=== PATIENT | male | born 1945 | race African-American/Black ===

== ENCOUNTER → 2016-09-21 | Outpatient (CLI) | payer OTHER ==
[~2016-09-21] MED LIST: AMLODIPINE BESY10 MG PO; ASPIRIN325 PO; BENICAR20 MG PO; FENOFIBRATE160 MG PO; FLEXERIL PO; HYDROCODON-ACE1 EAC7 PO; LIPITOR40 MG PO; LOPRESSOR 50 MG50 M1 PO; MULTI VITAMIN1 EACH PO; NICOTINE TRANSD21 M1 TD; NORCO 5-325 TA1 EACH PO
== END ==
LOC: GI 05:22 → EDSTATUS 11:16 → GI 11:18
DX: D64.89 Other specified anemias (principal); K55.20 Angiodysplasia of colon without hemorrhage; K92.1 Melena; Z79.82 Long term (current) use of aspirin; Z79.899 Other long term (current) drug therapy; Z88.8 Allergy status to other drugs, medicaments and biological substances; I10 Essential (primary) hypertension; E78.00 Pure hypercholesterolemia, unspecified

== ENCOUNTER → 2016-10-21 | Outpatient (CLI) | payer OTHER ==
[~2016-10-21] VITALS: Ht 167.6 cm; Wt 83.5 kg
[~2016-10-21] MED LIST changes: +COZAAR 50 MG TA50 M2 PO; +IRON325 PO; +PANTOPRAZOLE SO40 M1 PO
== END | disposition home or self-care (01) ==
LOC: GI 08:20
DX: Q27.33 Arteriovenous malformation of digestive system vessel (principal); D64.9 Anemia, unspecified
CPT/HCPCS: 62110; 62900

== ENCOUNTER → 2018-08-17 | Outpatient (CLI) | payer OTHER ==
[~2018-08-17] VITALS: Ht 167.6 cm; Wt 88.0 kg
[~2018-08-17] MED LIST changes: +LIPITOR10 MG PO; +LOPRESSOR50 PO
--- NOTE | ~2018-08-17 | P ---
[facility] [place] [address] PROCEDURE REPORT Name: BONITA LEON JR Room #: REG JUNIOR Gutiérrez.#: [id number] Admission: 08/17/18 ������������������ Attend Phys: Anish Green Discharge: ������������������ Date of : 45 Report #: [id number] THIS REPORT FOR: //name// CC: Anish Oakley MD DATE OF SERVICE: 08/17/2018 PROCEDURE PERFORMED: Colonoscopy with biopsies and cautery. HISTORY OF PRESENT ILLNESS: The patient is a 73-year-old male with a history of colon polyps, here for a 5-year routine followup, possible family history of colon cancer in his father. 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 He denies any signs of bleeding at this time. He has also had a previous tight stricture of the sigmoid colon that was surgically removed several years ago due to recurrent diverticulitis. DESCRIPTION OF PROCEDURE: The risks and benefits of the procedure were explained to the patient, those risks including, but not limited to, bleeding, perforation, the risk of sedation. He understood these risks and gave informed consent. Sedation was given using propofol per anesthesia. Next, a digital rectal exam was initially performed, which was normal. Next, using a standard Olympus colonoscope, the scope was placed in the patient's anus and advanced under direct vision to the cecum. The overall prep was excellent. In the cecum, there were 2 small nonbleeding AVMs. Because of his previous history of AVMs and anemia, however, I did proceed with cautery. Using a 7-Finnish bipolar cautery, these were cauterized without any difficulty. No evidence of bleeding after cauterization. The ileocecal valve was normal. The ascending, transverse and descending colon were normal. In the remaining sigmoid colon, a single 4 mm sessile polyp was noted. This was removed with cold forceps. The surgical anastomosis was noted. This was well healed and widely patent. The rectal mucosa was normal. On retroflexion, no abnormalities were noted. The scope was then withdrawn and the procedure terminated. The patient tolerated the procedure well. IMPRESSION: 1. Small colonic polyp. 2. 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 3. Surgical anastomosis noted in the sigmoid colon. RECOMMENDATIONS: 1. Await biopsy results. 2. Repeat colonoscopy in [address] [address] PROCEDURE REPORT Name: BONITA LEON Room #: REG JUNIOR Dc#: [id number] Admission: 08/17/18 ������������������ Attend Phys: Anish Green Discharge: ������������������ Date of : 45 Report #: [id number] Thank you for allowing me to participate in his care. ��������������������������������������������� ���������������������������������������� By: ��������������������������������������������� [id number] [id number] Anish Gutierrez MD /swapna
--- NOTE | 2018-08-20 17:06 | PATH ---
[facility] [address] [place] [address] PATHOLOGY RPT PROCEDURE Name: DMITRI LEON JR Room #: REG [facility] M.R.#: [id number] ������������������ Admission: 08/17/18 ������������������ Date of : 45 Discharge: Report #: [id number] Path Case #: [id number] [facility] Accession Number: [id number] . 01 Material submitted: . colon - POLYP AT SIGMOID. Modifiers: sigmoid . 01 Clinical history: . Hx of polyps . 02 Diagnosis: Polyp, at sigmoid, endoscopic biopsy: - Tubular adenoma. - Negative for high-grade dysplasia. (IUV:director of public health; 08/20/2018) MBR/08/20/2018 . 02 Electronically signed: . Gladys Stone MD, Pathologist NPI- [id number] . 01 Gross description: . Received in formalin labeled "Dmitri Leon Jr, polyp at sigmoid," are 2 segments of eason soft tissue measuring 1.0 x 0.2 x 0.2 cm in aggregate dimensions and ranging from 0.3 to 0.8 cm in maximum dimension. The specimen is submitted entirely in cassette A1. (TSD; 08/17/2018) TOB/TOB . 02 Pathologist provided ICD-10: D12.5 . 02 CPT . 763547 Specimen Comment: A courtesy copy of this report has been sent to Specimen Comment: [phone], . Specimen Comment: Report sent to / DR LAW Performed at: [address], [place], [place] [id number] MD Eduardo Chaney MD Phone: [phone] Performed at: [address] [id number] MD Gladys Stone MD Phone: [phone]
== END | disposition home or self-care (01) ==
LOC: GI 07:46
DX: Z12.11 Encounter for screening for malignant neoplasm of colon (principal); Z86.010 Personal history of colon polyps; D12.5 Benign neoplasm of sigmoid colon; K55.20 Angiodysplasia of colon without hemorrhage; Z98.0 Intestinal bypass and anastomosis status; I10 Essential (primary) hypertension; E78.5 Hyperlipidemia, unspecified; D64.9 Anemia, unspecified; K21.9 Gastro-esophageal reflux disease without esophagitis; Z87.442 Personal history of urinary calculi; Z98.890 Other specified postprocedural states; Z87.891 Personal history of nicotine dependence; Z79.899 Other long term (current) drug therapy; Z88.8 Allergy status to other drugs, medicaments and biological substances; Z79.82 Long term (current) use of aspirin; Z87.19 Personal history of other diseases of the digestive system; Z86.2 Personal history of diseases of the blood and blood-forming organs and certain disorders involving the immune mechanism
CPT/HCPCS: 62110; 62900

== ENCOUNTER → 2019-02-01 | Outpatient (CLI) | payer OTHER ==
[~2019-02-01] VITALS: Ht 167.6 cm; Wt 88.0 kg
--- NOTE | 2019-02-01 20:21 | P ---
[facility] [place] [address] PROCEDURE REPORT Name: BONITA LEON JR Room #: REG JUNIOR Gutiérrez.#: [id number] Admission: 02/01/19 Attend Phys: Anish Green Discharge: Date of : 45 Report #: [id number] THIS REPORT FOR: //name// CC: Anish Oakley MD PROCEDURE PERFORMED: EGD with small bowel enteroscopy and cauterization. HISTORY OF PRESENT ILLNESS: The patient is a 73-year-old male with a history of anemia. He has been on iron, he has noticed dark stools recently. He had a colonoscopy by myself on 08/17/2018 in which 2 nonbleeding cecal AVMs were noted and cauterized. A small colonic polyp was removed. The patient had a previous surgical resection of sigmoid colon for diverticulitis and stricture. He also has a known history of small bowel AVMs. He underwent a capsule endoscopy in September 2016 showing multiple small AVMs, nonbleeding at the time. Therefore, I proceeded with EGD and small bowel enteroscopy on 10/21/2016. All areas were cauterized that were noted. Plan is for repeat EGD with small bowel enteroscopy. DESCRIPTION OF PROCEDURE: The risks and benefits of the procedure were explained to the patient, those risks including but not limited to bleeding, perforation and the risk of sedation. He understood these risks and gave informed consent. Using Olympus pediatric colonoscope, the scope was placed in the patient's mouth and advanced under direct vision through the esophagus, stomach and into the duodenum. I then advanced the scope as far as possible to approximately 140 cm. The scope was then slowly withdrawn. There were no AVMs or abnormalities noted throughout the area of the jejunum that was visualized or the duodenum. The gastric pylorus was normal and patent. In the gastric antrum, 2 small areas of erythema were noted, possibly consistent with an AVM, no bleeding. Because of his history, I proceeded with a 7-Botswanan bipolar cautery. No evidence of bleeding after cauterization. There was a very mild gastritis noted, but no bleeding, no ulcerations. The GE junction was normal. The esophagus was normal. The larynx was normal. The scope was then withdrawn and the procedure terminated. The patient tolerated the procedure well. IMPRESSION: 1. Possible two small nonbleeding arteriovenous malformations in the gastric antrum, status post cautery. 2. Normal duodenum and jejunum that was visualized. 3. Normal esophagus. RECOMMENDATIONS: 1. Observe the patient post-procedure. 2. We will Hemoccult test stools next. If positive, we would consider repeat M2 capsule at that time. [address] [address] PROCEDURE REPORT Name: BONITA LEON Room #: REG JUNIOR Dc#: [id number] Admission: 02/01/19 Attend Phys: Anish Green Discharge: Date of : 45 Report #: [id number] Thank you for allowing me to participate in his care. <ELECTRONICALLY SIGNED> By: Anish Gutierrez MD 02/01/192020 0934 50 Anish Gutierrez MD /nt
== END | disposition home or self-care (01) ==
LOC: GI 01-11 09:20
DX: K31.89 Other diseases of stomach and duodenum (principal); D64.9 Anemia, unspecified; K29.70 Gastritis, unspecified, without bleeding; I10 Essential (primary) hypertension; E78.5 Hyperlipidemia, unspecified; K21.9 Gastro-esophageal reflux disease without esophagitis; Z98.890 Other specified postprocedural states; Z98.0 Intestinal bypass and anastomosis status; Z87.19 Personal history of other diseases of the digestive system; Z87.442 Personal history of urinary calculi; Z87.891 Personal history of nicotine dependence; Z88.8 Allergy status to other drugs, medicaments and biological substances; Z79.82 Long term (current) use of aspirin; Z79.899 Other long term (current) drug therapy
CPT/HCPCS: 62110; 62900

== ENCOUNTER → 2019-02-14 | Outpatient (CLI) | payer OTHER | END | disposition home or self-care (01) | LOC: GI 06:22 | DX: D50.0 Iron deficiency anemia secondary to blood loss (chronic) (principal); K55.20 Angiodysplasia of colon without hemorrhage; R19.5 Other fecal abnormalities ==